=== PATIENT | male | born 1945 | race Asian ===

== ENCOUNTER 2017-10-13 06:04 | Emergency (ER) | payer MEDICARE ==
[2017-10-13 06:38] LABS: Basophils % (Auto) 0.3 % (0.0-1.8); Eosinophils % (Auto) 0.9 % (0.0-4.3); Hematocrit 39.9 % (35.5-45.6); Hemoglobin 13.1 gm/dl (11.8-15.2); Mean Corpuscular HGB Conc 33 % (32-34); Mean Corpuscular Hemoglobin 30 pg (28-32); Mean Corpuscular Volume 91 fl (84-94); Platelet Count 207 K/mm3 (140-440); Red Blood Count 4.38 M/mm3 (3.65-5.03); Red Cell Distribution Width 15.1 % (13.2-15.2); White Blood Count 10.5 K/mm3 (4.5-11.0)
[2017-10-13 06:55] LABS: Anion Gap 17 mmol/L; BUN/Creatinine Ratio 15; Blood Urea Nitrogen 17 mg/dL (9-20); Calcium 9.2 mg/dL (8.4-10.2); Carbon Dioxide 25 mmol/L (22-30); Chloride 102.3 mmol/L (98-107); Glucose 116 mg/dL (75-100); Potassium 4.1 mmol/L (3.6-5.0); Sodium 140 mmol/L (137-145)
[2017-10-13] MEDS ORDERED: ZOFRAN IV ONE (08:39)
[2017-10-13] MEDS ORDERED: PEPCID IV ONE (08:39)
[2017-10-13] MEDS ORDERED: NACL 0.9% 500 ML 500 ML IV ONE (08:40)
--- NOTE | 2017-10-13 08:40 | Emergency Department Report ---
ED General Adult HPI - General Chief complaint: Nausea/Vomiting/Diarrhea Stated complaint: GENERAL WEAKNESS/DIZZINESS Time Seen by Provider: 10/13/17 08:29 Source: patient, EMS, RN notes reviewed, old records reviewed Mode of arrival: Ambulatory Limitations: No Limitations - History of Present Illness Initial comments: Primary care DrGabriel: Dr Matthew Past medical history: Arthritis, COPD, possible paroxysmal atrial fibrillation, varicose veins, kyphosis This is a 72-year-old male who was previously unknown to this provider. Patient is brought to the hospital by EMS for abdominal cramping, nausea and vomiting. Patient reports being in his usual state of health yesterday, and then went to a fast food restaurant, shortly thereafter, reports multiple episodes of nonbloody, nonbilious emesis. She also describes abdominal cramping. His vomiting has resolved. His abdominal cramping has resolved. Does not radiate anywhere. No exacerbating or relieving factors. Denies urinary symptoms. Prior to this, states he felt fine, indicates no headache, neck pain, chest pain, short of breath, irritative or obstructive urinary symptoms. -: Gradual Location: abdomen Improves with: none Worsens with: none Associated Symptoms: nausea/vomiting - Related Data Home Medications Medication Instructions Recorded Confirmed Last Taken Cholecalciferol (Vitamin D3) 2,000 unit PO QDAY 10/13/17 10/13/17 10/12/17 [Vitamin D3 2,000 unit] Previous Rx's Medication Instructions Recorded Last Taken Type Dicyclomine [Bentyl] 10 mg PO QID PRN #20 capsule 10/13/17 Unknown Rx Famotidine [Pepcid] 20 mg PO QDAY #30 tablet 10/13/17 Unknown Rx Ondansetron [Zofran Odt] 4 mg PO Q8HR PRN #20 tab.rapdis 10/13/17 Unknown Rx Allergies Allergy/AdvReac Type Severity Reaction Status Date / Time Penicillins Allergy Itching Verified 08/15/15 16:47 ED Review of Systems ROS: Stated complaint: GENERAL WEAKNESS/DIZZINESS Other details as noted in HPI Constitutional: malaise Eyes: denies: eye discharge ENT: denies: epistaxis Respiratory: denies: cough Cardiovascular: denies: chest pain Gastrointestinal: abdominal pain, nausea, vomiting Genitourinary: denies: urgency, dysuria, testicular pain Skin: as per HPI Neurological: weakness Psychiatric: as per HPI ED Past Medical Hx - Past Medical History Previous Medical History?: Yes Hx Hypertension: Yes Hx COPD: Yes Additional medical history: Afib. Varicose veins - Surgical History Past Surgical History?: No Hx Coronary Stent: No Hx Open Heart Surgery: No Hx Pacemaker: No Hx Internal Defibrillator: No Hx Cholecystectomy: No Hx Appendectomy: No Hx Breast Surgery: No - Social History Smoking Status: Never Smoker Substance Use Type: None - Medications Home Medications: Home Medications Medication Instructions Recorded Confirmed Last Taken Type Cholecalciferol (Vitamin D3) 2,000 unit PO QDAY 10/13/17 10/13/17 10/12/17 History [Vitamin D3 2,000 unit] Dicyclomine [Bentyl] 10 mg PO QID PRN #20 capsule 10/13/17 Unknown Rx Famotidine [Pepcid] 20 mg PO QDAY #30 tablet 10/13/17 Unknown Rx Ondansetron [Zofran Odt] 4 mg PO Q8HR PRN #20 tab.rapdis 10/13/17 Unknown Rx ED Physical Exam - General Limitations: No Limitations General appearance: alert, in no apparent distress - Head Head exam: Present: atraumatic, normocephalic - Eye Eye exam: Present: normal appearance - ENT ENT exam: Present: normal exam, normal orophraynx, mucous membranes moist, normal external ear exam - Neck Neck exam: Present: normal inspection, full ROM - Respiratory Respiratory exam: Present: normal lung sounds bilaterally. Absent: respiratory distress - Cardiovascular Cardiovascular Exam: Present: regular rate, normal rhythm, normal heart sounds. Absent: systolic murmur, diastolic murmur, rubs, gallop - GI/Abdominal GI/Abdominal exam: Present: soft, normal bowel sounds. Absent: distended, tenderness, guarding, rebound, rigid, pulsatile mass - Rectal Rectal exam: Present: deferred - Extremities Exam Extremities exam: Present: normal inspection, full ROM, normal capillary refill. Absent: pedal edema, joint swelling, calf tenderness - Back Exam Back exam: Absent: normal inspection (no tenderness, kyphoscoliosis is noted), CVA tenderness (R), CVA tenderness (L), paraspinal tenderness, vertebral tenderness - Neurological Exam Neurological exam: Present: alert, oriented X3, CN II-XII intact, normal gait, other (Extraocular movements intact. Tongue midline. No facial droop. Facial sensation intact to light touch in the V1, V2, V3 distribution bilaterally. 5 and 5 strength in 4 extremities.. Sensation is intact to light touch in 4 extremities.). Absent: motor sensory deficit - Psychiatric Psychiatric exam: Present: normal affect, normal mood - Skin Skin exam: Present: warm, dry, intact, normal color. Absent: rash ED Course Vital Signs 10/13/17 10/13/17 10/13/17 06:10 06:16 06:20 Temperature 97.1 F L Pulse Rate 105 H 99 H Respiratory 18 11 L 14 Rate Blood Pressure 151/79 O2 Sat by Pulse 97 96 95 Oximetry 10/13/17 10/13/17 10/13/17 06:30 06:45 07:00 Temperature Pulse Rate 98 H 100 H 100 H Respiratory 18 15 14 Rate Blood Pressure 136/80 136/80 137/81 O2 Sat by Pulse 95 96 Oximetry 10/13/17 10/13/17 10/13/17 07:15 07:30 07:45 Temperature Pulse Rate 98 H 98 H 97 H Respiratory 12 14 18 Rate Blood Pressure 137/81 134/82 137/81 O2 Sat by Pulse 96 96 97 Oximetry 10/13/17 10/13/17 10/13/17 08:00 08:15 08:30 Temperature Pulse Rate 92 H 95 H 104 H Respiratory 19 20 20 Rate Blood Pressure 149/78 134/82 129/78 O2 Sat by Pulse 94 95 94 Oximetry 10/13/17 10/13/17 10/13/17 10:23 10:31 10:37 Temperature 97.9 F Pulse Rate 90 97 H Respiratory 11 L 19 Rate Blood Pressure 149/78 143/78 O2 Sat by Pulse 98 95 Oximetry - Reevaluation(s) Reevaluation #1: 10/13/17 08:55 Differential diagnosis, including but not limited to: Food poisoning, enteritis , intra-abdominal infection Assessment and plan: 72-year-old male who is conversant, awake and alert, who presents to the ER with nausea and vomiting and abdominal cramping after eating fast food. Abdomen is soft, patient reports that he has not vomited for a few hours, however given his advanced age, we will obtain CT scan of the abdomen and pelvis. He will be given IV fluids, nausea medication and nonnarcotic pain medication. Reevaluation #2: 10/13/17 10:55 Patient feels improved. He is tolerating liquid feeds. CT scan negative. Patient will be discharged. Return precautions reviewed. ED Medical Decision Making - Lab Data Result diagrams: 10/13/17 06:26 10/13/17 06:26 Critical care attestation.: If time is entered above; I have spent that time in minutes in the direct care of this critically ill patient, excluding procedure time. ED Disposition Clinical Impression: History of nausea and vomiting Disposition: DC-01 TO HOME OR SELFCARE Is pt being admited?: No Does the pt Need Aspirin: No Condition: Stable Instructions: Acute Nausea and Vomiting (ED) Additional Instructions: Take the nausea medication as needed/directed. Take the pain medication as needed/directed. If patient takes metformin, do not take for the next 48 hours. Advance diet slowly and gently, starting with liquids, Pedialyte, or Gatorade mixed with water. Advance diet to bread, rice, apples toast as tolerated. Follow-up with your primary care doctor within the week. Return to the ER right away with new pain, worsened pain, migration of pain, fevers, chills, lethargy, irritability, projectile vomiting, change in mental status, confusion, inability to tolerate liquid feeds. Prescriptions: Dicyclomine [Bentyl] 10 mg PO QID PRN #20 capsule PRN Reason: Pain Famotidine [Pepcid] 20 mg PO QDAY #30 tablet Ondansetron [Zofran Odt] 4 mg PO Q8HR PRN #20 tab.rapdis PRN Reason: Nausea Referrals: PRIMARY CAREMD [Primary Care Provider] - 3-5 Days ANANDA MATTHEW MD [Staff Physician] - 3-5 Days
[2017-10-13] MEDS ORDERED: BENTYL PO ONE (09:30)
[2017-10-13] MEDS ORDERED: CARAFATE PO ONE (09:30)
--- NOTE | 2017-10-13 10:29 | Cat Scan Report ---
CT ABDOMEN PELVIS WITH CONTRAST: HISTORY: abdominal pain, nausea and vomiting. COMPARISON: none. TECHNIQUE: Helical CT in 1.25mm intervals following IV contrast. Sagittal and coronal reconstructions. FINDINGS: Lung bases: Normal. Liver: Within normal limits. 1.5 cm left hepatic lobe cyst is noted. Biliary system: normal. Pancreas: normal. Spleen: normal. Kidneys/ureters/bladder: normal. Adrenal glands: normal. Aorta: normal. Intestines: No gross abnormality given no oral contrast was administered. Appendix: normal. Pelvic viscera: normal. Musculoskeletal: Osteopenia and degenerative changes in the thoracolumbar spine. No acute fracture. IMPRESSION: No acute processes identified in the abdomen or pelvis.
[2017-10-13 10:38] VITALS: BP 143/78
== END 2017-10-13 12:05 | disposition home or self-care (01) ==
LOC: ED 06:04
DX: R11.2 Nausea with vomiting, unspecified (principal); R10.9 Unspecified abdominal pain; J44.9 Chronic obstructive pulmonary disease, unspecified; M19.90 Unspecified osteoarthritis, unspecified site; I10 Essential (primary) hypertension; Z88.0 Allergy status to penicillin
CPT/HCPCS: 36415; 74177; 80048; 85025; 96374; 96375; 99284; J2405; J7040; Q9967